=== PATIENT | male | born 1950 | race Caucasian/White ===

== ENCOUNTER 2016-12-11 14:33 | Emergency (ER) | payer BC ==
[~2016-12-11] VITALS: Ht 175.3 cm; Wt 128.4 kg
[~2016-12-11 14:33] MED LIST: ANDR4DIS TD; ASPI81TA63 PO; ATOR1TAB19 PO; BENI20TA3 PO; CENTTAB47 PO; FLUT11IN INH; OSTETAB3 PO; SYNT50TA PO; VITA400C97 PO
[2016-12-11] MEDS ORDERED: LIDOCAINE 2% MDV 20 ML VIAL As Ordered ONE (14:39)
[2016-12-11] MEDS ORDERED: ceFAZolin 1GM INJ (J0690) As Ordered ONE (14:52)
[2016-12-11] MEDS ORDERED: TETANUS/DIPHTHERIA TOX ADSORB ADULT 0.5ML SYR/VIAL (90714) As Ordered ONE (14:58)
[2016-12-11] MEDS ORDERED: ADACEL/BOOSTRIX VACCINE (DIPHTH/PERTUSS/ACELL/TETANUS)0.5ML SYR (90715) As Ordered ONE (15:02)
[2016-12-11 15:12] LABS: MEAN CORPUSCULAR HEMOGLOBIN 33.7 pg (27.0-33.0); MEAN CORPUSCULAR HGB CONC 35.8 g/dl (32.0-36.5); RED CELL DISTRIBUTION WIDTH 12.4 % (11.5-14.5); WHITE BLOOD COUNT 8.3 K/mm3 (4.0-10.0)
[2016-12-11 15:25] LABS: INR 1.02
[2016-12-11 15:30] LABS: ANION GAP 11 MEQ/L (8-16); BLOOD UREA NITROGEN 15 MG/DL (7-18); CARBON DIOXIDE LEVEL 26 MEQ/L (21-32); CHLORIDE LEVEL 105 MEQ/L (98-107); CREATININE FOR GFR 0.86 MG/DL (0.70-1.30); GLOMERULAR FILTRATION RATE > 60.0 (>49); GLUCOSE, FASTING 175 MG/DL (80-110); POTASSIUM SERUM 4.1 MEQ/L (3.5-5.1); SODIUM LEVEL 142 MEQ/L (136-145)
--- NOTE | 2016-12-11 15:36 | REP ---
Clinical: Trauma. Technique: AP, lateral, bilateral oblique views of the right hand. Findings: There is a comminuted fracture / partial amputation involving the distal aspect of the second digit predominately involving the distal phalanx and overlying soft tissue. Remainder examination appears relatively normal. Impression: Comminuted fracture / partial amputation involving the distal aspect of the second digit. Signed by Omari Nolasco MD 12/11/2016 03:28 P
[2016-12-11] MEDS ORDERED: LEVO25TA5 PO (15:40)
[2016-12-11] MEDS ORDERED: ATOR40TA PO (15:40)
--- NOTE | 2016-12-11 17:16 | EDDOCDS ---
Physician Documentation [facility] Name: Jonathan Dixon Age: 66 yrs Sex: Male : 1950 Arrival Date: 12/11/2016 Time: 14:33 Bed 5 Private MD: Disposition: 12/11/16 17:00 Discharged to Home/Self Care. 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 - Condition is Stable. - Discharge Instructions: Fingertip Injuries and Amputations, Fingernail or Toenail Loss. - Prescriptions for Keflex 500 mg Oral Capsule - take 1 capsule by ORAL route every 6 hours for 10 days; 40 capsule. Percocet 5- 325 mg Oral Tablet - take 1 tablet by ORAL route every 6 hours As needed MDD: 4 tabs; 30 tablet. - Medication Reconciliation, Local Pharmacy Hours form. - Follow up: Denis Camargo; When: Call to arrange an appointment; Reason: Recheck today's complaints, Continuance of care. - Problem is new. - Symptoms have improved. Historical: - Allergies: no known allergies; - Home Meds: 1. Lipitor 40 mg Oral tab 1 tab once daily 2. unknwn for thyroid - PMHx: High Cholesterol; Hypertension; Hypothyroidism; - PSHx: none; - Social history: Smoking status: Patient states former smoker of tobacco. No barriers to communication noted, The patient speaks fluent Macedonian, Speaks appropriately for age. - Family history: Not pertinent. - : The pt / caregiver states he / she is not on anticoagulants. Home medication list is obtained from the patient. - Exposure Risk Screening:: None identified. Vital Signs: 12/11 14:42 Weight 128.37 kg / 283.01 lbs (R); Height 5 ft. 9 in. (175.26 cm) (R); Pain 0/10; mlb1 14:42 BP 194 / 92; Pulse 99; Resp 16; Temp 96.6; Pulse Ox 97% on R/A; mlb1 17:08 BP 156 / 97; Pulse 104; Resp 20; Temp 97.5(O); Pulse Ox 96% on R/A; Pain 0/10; jml1 14:42 Body Mass Index 41.79 (128.37 kg, 175.26 cm) mlb1 MDM: 14:46 IV Saline Lock ordered. ke 14:46 Tetanus- Diptheria-Acellular Pertussis 0.5 ml IM once; Routine booster 10-64yrs, >64 ke with child contact [place] [employer] ordered. 14:46 ceFAZolin 1 grams IVPB once over 30 mins; dilute in 50mL of NS or D5W ordered. ke 14:47 Hand, Complete Ordered. EDMS 14:47 CBC Ordered. EDMS 14:47 BMP Ordered. EDMS 14:47 PT/INR Ordered. EDMS 15:10 BED REQUEST+ADM ordered. EDMS 17:05 [facility] Payment Agreement was scanned into [email or web address] and attached to record. jp5 17:05 Financial registration complete. jp5 Administered Medications: 14:40 Drug: Tetanus- Diptheria-Acellular Pertussis 0.5 ml [diphth,pertussis(acel),tetanus 2.5 aa3 Lf unit-8 mcg-5 Lf/0.5mL IM syringe (0.5 mL)] {Outreach Nurse: [employer]. Exp: 01/05/2019. Lot #: [id number]. } Route: IM; Site: left deltoid; 15:19 Drug: ceFAZolin 1 grams [cefazolin 1 gram solution for injection] Route: IVPB; Infused aa3 Over: 30 mins; Site: left forearm; Signatures: Dispatcher [employer] EDWY Willie Hernandez, CLINICAL NURSING COORDINATOR CLINICAL NURSING COORDINATOR Michel Zepeda RN RN mlb1 Zuleika BhatRN RN aa3 Chantal Tomlinson jp5 The chart was reviewed and I authenticate all verbal orders and agree with the evaluation and treatment provided.Attachments: 17:05 [facility] Payment Agreement jp5 MTDD
--- NOTE | 2016-12-11 17:16 | EDDOCDS ---
Nurse's Notes 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 Adult Sepsis Screening: The patient does not have new or worsening altered mentation. Patient's respiratory rate is less than 22. Systolic blood pressure is greater than 100. Patient has a qSOFA score of 0- Negative Sepsis Screen. Suicide/Homicide risk assessment- the patient denies having any suicidal and/or homicidal ideations and does not present with any other emotional, behavioral or mental health complaints. 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 Transition of care: patient was not received from another setting of care. 14:37 Acuity: LIVIER Level 3 mlb1 14:37 Method Of Arrival: Walkin/Carried/Asstd mlb1 Triage Assessment: 14:41 General: Appears in no apparent distress, Behavior is appropriate for age, cooperative. mlb1 Pain: Denies pain. HIV screening NA for this visit Offered previously. Historical: - Allergies: no known allergies; - Home Meds: 1. Lipitor 40 mg Oral tab 1 tab once daily 2. unknwn for thyroid - PMHx: High Cholesterol; Hypertension; Hypothyroidism; - PSHx: none; - Social history: Smoking status: Patient states former smoker of tobacco. No barriers to communication noted, The patient speaks fluent Estonian, Speaks appropriately for age. - Family history: Not pertinent. - : The pt / caregiver states he / she is not on anticoagulants. Home medication list is obtained from the patient. - Exposure Risk Screening:: None identified. Screenin:19 Screening information is obtained from the patient. Fall risk: No risks identified. aa3 Assistance ADL's: requires no assistance with activities of daily living. Abuse/DV Screen: The patient / caregiver reports he/she is: not in a situation that causes fear, pain or injury. Nutritional screening: No deficits noted. Advance Directives: Currently, there is no health care proxy. There is no active DNR order. There is no living will. home support is adequate. Assessment: 15:19 General: Appears in no apparent distress, comfortable, Behavior is appropriate for age, aa3 cooperative. Pain: Location: dorsal aspect of distal phalanx of right index finger, palmar aspect of distal phalanx of right index finger and right index fingernail Pain currently is 0 out of 10 on a pain scale. Neurological: Level of Consciousness is awake, alert. Respiratory: Airway is patent Respiratory effort is even, unlabored, Respiratory pattern is regular, symmetrical. Derm: Skin is healthy with good turgor. Musculoskeletal: Patient's tip of right pointer finger from first knuckle distal at 45 degree angle sheared off. 16:33 General: Appears in no apparent distress, comfortable, Behavior is appropriate for age, aa3 cooperative. General: Dr. Camargo in to see patient, currently stitching patient's finger. Patient denies needs at this time. Will continue to monitor.. Pain: Denies pain. Neurological: Level of Consciousness is awake, alert, Oriented to person, place, time. Respiratory: Airway is patent Respiratory effort is even, unlabored, Respiratory pattern is regular, symmetrical. 17:02 General: Appears in no apparent distress, comfortable, Behavior is appropriate for age, aa3 cooperative. Neurological: Level of Consciousness is awake, alert, Oriented to person, place, time. Respiratory: Airway is patent Respiratory effort is even, unlabored, Respiratory pattern is regular, symmetrical. Musculoskeletal: Vital Signs: 14:42 Weight 128.37 kg (R); Height 5 ft. 9 in. (175.26 cm) (R); Pain 0/10; mlb1 14:42 BP 194 / 92; Pulse 99; Resp 16; Temp 96.6; Pulse Ox 97% on R/A; mlb1 17:08 BP 156 / 97; Pulse 104; Resp 20; Temp 97.5(O); Pulse Ox 96% on R/A; Pain 0/10; jml1 14:42 Body Mass Index 41.79 (128.37 kg, 175.26 cm) mlb1 Vitals: 17:15 Log In Time: December 11, 2016 at 14:42. aa3 ED Course: 14:35 Patient visited by Sol Taylor. mm15 14:35 Patient moved to Waiting mm15 14:36 [facility] FNP [facility]. ke 14:36 Patient visited by Willie Hernandez FNP. ke 14:36 Patient visited by Willie Hernandez FNP. ke 14:36 Patient moved to 5 mlb1 14:37 Patient visited by Michel Gaines RN. mlb1 14:38 Triage Initiated mlb1 14:48 Zuleika Bhat RN is Primary Nurse. aa3 14:50 Inserted peripheral IV: 20gauge IV in left forearm Patient tolerated the procedure aa3 well. Labs drawn. (by ED staff). Sent per order to lab. direct pressure applied by Danish Pierre CNA. 15:09 Patient visited by Willie Hernandez FNP. ke 15:19 The patient / caregiver is instructed regarding the plan of care and ED course. aa3 15:26 Patient visited by Zuleika Bhat RN. aa3 15:32 Patient visited by Zuleika Bhat RN. aa3 15:58 Patient visited by Willie Hernandez FNP. ke 16:03 Hand, Complete Returned. EDMS 16:33 Patient visited by Willie Hernandez FNP. ke 16:33 Patient visited by Zuleika Bhat RN. aa3 16:33 Assist provider with laceration repair using sutures, Performed by Denis Camargo Set up aa3 tray. Dressed with Kerlix, Patient tolerated well. [address] Camargo. 16:59 Denis Camargo is Referral Physician. ke 17:04 Patient visited by Zuleika Bhat RN. aa3 17:05 [facility] Payment Agreement was scanned into [employer] and attached to record. jp5 17:08 Patient visited by Kory Alcala. jml1 Administered Medications: 14:40 Drug: Tetanus- Diptheria-Acellular Pertussis 0.5 ml [diphth,pertussis(acel),tetanus 2.5 aa3 Lf unit-8 mcg-5 Lf/0.5mL IM syringe (0.5 mL)] {Gis Engineer: [employer]. Exp: 01/05/2019. Lot #: [id number]. } Route: IM; Site: left deltoid; 15:19 Drug: ceFAZolin 1 grams [cefazolin 1 gram solution for injection] Route: IVPB; Infused aa3 Over: 30 mins; Site: left forearm; Order Results: Lab Order: CBC; [facility] 12/11/16 15:04 Test: WHITE BLOOD COUNT; Value: 8.3; Range: 4.0-10.0; Units: K/mm3; Status: F Test: RED BLOOD COUNT; Value: 4.77; Range: 4.30-6.10; Units: M/mm3; Status: F Test: HEMOGLOBIN; Value: 16.1; Range: 14.0-18.0; Units: g/dl; Status: F Test: HEMATOCRIT; Value: 44.9; Range: 42.0-52.0; Units: %; Status: F Test: MEAN CORPUSCULAR VOLUME; Value: 94.0; Range: 80.0-96.0; Units: fl; Status: F Test: MEAN CORPUSCULAR HEMOGLOBIN; Value: 33.7; Range: 27.0-33.0; Abnormal: Above high normal; Units: pg; Status: F Test: MEAN CORPUSCULAR HGB CONC; Value: 35.8; Range: 32.0-36.5; Units: g/dl; Status: F Test: RED CELL DISTRIBUTION WIDTH; Value: 12.4; Range: 11.5-14.5; Units: %; Status: F Test: PLATELET COUNT, AUTOMATED; Value: 212; Range: 150-450; Units: k/mm3; Status: F Lab Order: BMP; [facility] 12/11/16 15:04 Test: GLUCOSE, FASTING; Value: 175; Range: 80-110; Abnormal: Above high normal; Units: MG/DL; Status: F Test: BLOOD UREA NITROGEN; Value: 15; Range: 7-18; Units: MG/DL; Status: F Test: CREATININE FOR GFR; Value: 0.86; Range: 0.70-1.30; Units: MG/DL; Status: F Test: GLOMERULAR FILTRATION RATE; Value: > 60.0; Range: >49; Status: F Test: SODIUM LEVEL; Value: 142; Range: 136-145; Units: MEQ/L; Status: F Test: POTASSIUM SERUM; Value: 4.1; Range: 3.5-5.1; Units: MEQ/L; Status: F Test: CHLORIDE LEVEL; Value: 105; Range: 98-107; Units: MEQ/L; Status: F Test: CARBON DIOXIDE LEVEL; Value: 26; Range: 21-32; Units: MEQ/L; Status: F Test: ANION GAP; Value: 11; Range: 8-16; Units: MEQ/L; Status: F Test: CALCIUM LEVEL; Value: 9.0; Range: 8.8-10.2; Units: MG/DL; Status: F Test Note: ; Units are mL/min/1.73 m2 Chronic Kidney Disease Staging per NKF: Stage I & II GFR >=60 Normal to Mildly Decreased Stage III GFR 30-59 Moderately Decreased Stage IV GFR 15-29 Severely Decreased Stage V GFR <15 Very Little GFR Left ESRD GFR <15 on BOILERMAKER ASSEMBLY AND ERECTION Lab Order: PT/INR; [facility] 12/11/16 15:04 Test: PROTHROMBIN TIME; Value: 13.5; Range: 12.3-14.5; Units: SECONDS; Status: F Test: INR; Value: 1.02; Status: F Test Note: ; THERAPUTIC HUMAN INR VALUES INDICATIONS NORMAL RANGES PROPHYLAXIS/TREATMENT OF: VENOUS THROMBOSIS 2.0-3.0 PULMONARY EMBOLISM 2.0-3.0 PREVENTION OF SYSTEMIC EMBOLISM FROM: TISSUE HEART VALVES 2.0-3.0 ACUTE MYOCARDIAL INFARCTION 2.0-3.0 VALVULAR HEART DISEASE 2.0-3.0 ATRIAL FIBRILLATION 2.0-3.0 MECHANICAL VALVES(HIGH RISK) 2.5-3.5 RECURRENT MYOCARDIAL INFARCTION 2.5-3.5 Radiology Order: Hand, Complete Test: Hand, Complete REASON FOR EXAMINATION: Trauma; Clinical: Trauma.; ; Technique: AP, lateral, bilateral oblique views of the right hand.; ; Findings:; There is a comminuted fracture / partial amputation involving the distal aspect; of the second digit predominately involving the distal phalanx and overlying soft; tissue. Remainder examination appears relatively normal.; ; Impression:; Comminuted fracture / partial amputation involving the distal aspect of the; second digit.; ; ; Signed by; Omari Nolasco MD 12/11/2016 03:28 P; Outcome: 16:33 Discharge Assessment: Patient awake and alert. Oriented to person, place and time. aa3 Patient verbalized understanding of disposition instructions. Patient has no functional deficits. patient administered narcotics - no. The following High Risk Discharge criteria are identified: None. Discharged to home ambulatory. Condition: good. No special radiology studies were completed. Property :Personal belongings accompany Pt. 17:00 Discharge ordered by Provider. louise 17:15 Discharge instructions given to patient, Instructed on discharge instructions, follow aa3 up and referral plans. medication usage, wound care, Demonstrated understanding of instructions, medications, Pt was receptive of discharge instructions/ teaching. Prescriptions given X 2. 17:15 Patient left the ED. aa3 Signatures: Dispatcher [employer] EDPR Willie Hernandez, SLIME PLANT OPERATOR SLIME PLANT OPERATOR Michel Zepeda, RN RN mlb1 Kory Alcala jml1 Sol Taylor mm15 Zuleika Bhat,RN RN aa3 Chantal Tomlinson jp5 MTDD
--- NOTE | 2016-12-11 20:33 | ER ---
DATE OF CONSULTATION: CHIEF COMPLAINT: Right index finger partial amputation. HISTORY OF PRESENT ILLNESS: Prior to admission, the patient caught his right index finger in a wood engraver at his home, severing the tip of the finger, and he presented emergently to the emergency room for evaluation. He has no other complaints. PAST MEDICAL HISTORY: Significant for high cholesterol, hypertension, hypothyroidism. PAST SURGICAL HISTORY: None. HOME MEDICATIONS: - aspirin 81 mg - Lipitor - thyroid medication ALLERGIES: None known. SOCIAL HISTORY: Former tobacco smoker. PHYSICAL EXAMINATION: Awake, alert, and oriented times three. Well appearing male in no acute distress. Appropriately dressed and well nourished. Focused examination of the right hand, the index finger tip, distal to the distal interphalangeal joint there is an oblique clean laceration with, on my initial examination, some venous bleeding, which is controlled with pressure. There is loss of tissue, predominantly on the very tip and the nail plate and nail bed has approximately 50% loss. There is some maceration of the distal tip and there is some bone loss as well. He does demonstrate active flexion and extension at the distal interphalangeal joint. Examination of his right hand is otherwise negative. X-rays of the right hand show the soft tissue loss with about 50% loss of the terminal phalanx of the index finger. Otherwise, negative. ASSESSMENT: flat spring assembler injury to the right index finger, as above. PLAN: After obtaining his verbal consent, using sterile technique, the small sliver of a nail plate and nail bed, which was remaining, was removed and ablated. The wound was copiously irrigated and I did use the battery powered cautery device for local hemostasis with good effect. The healthy remaining flap tissue of the stump was brought over and covered the defect. I was able to cover all the bone with healthy-appearing tissue. I did have to remove about 3 or 4 mm of the terminal phalanx with the rongeur to assist with the closure, but good closure was appreciated and at this time the tip is pink and well perfused. He is oozing minimally venous blood at this time. We will monitor him prior to discharge to ensure that good hemostasis is achieved, which I do anticipate will be. The plan at this point, he is placed in sterile dressings. He will followup with the orthopedic group for examination this week. I have advised him that there is a chance he might need some form of revision operation or a flap possibly to cover a small remnant defect or possibly to revise what has been done. I did offer him referral this evening to a hand specialist urgently, but he did decline that and he is satisfied at this time with the treatment.
--- NOTE | 2016-12-13 18:16 | EDDOCDS ---
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 Adult Sepsis Screening: The patient does not have new or worsening altered mentation. Patient's respiratory rate is less than 22. Systolic blood pressure is greater than 100. Patient has a qSOFA score of 0- Negative Sepsis Screen. Suicide/Homicide risk assessment- the patient denies having any suicidal and/or homicidal ideations and does not present with any other emotional, behavioral or mental health complaints. Status: Patient is not a director emergency services or dependent. Transition of care: patient was not received from another setting of care. 14:37 Acuity: LIVIER Level 3 mlb1 14:37 Method Of Arrival: Walkin/Carried/Asstd mlb1 Triage Assessment: 14:41 General: Appears in no apparent distress, Behavior is appropriate for age, cooperative. mlb1 Pain: Denies pain. HIV screening NA for this visit Offered previously. Historical: - Allergies: no known allergies; - Home Meds: 1. Lipitor 40 mg Oral tab 1 tab once daily 2. unknwn for thyroid - PMHx: High Cholesterol; Hypertension; Hypothyroidism; - PSHx: none; - Social history: Smoking status: Patient states former smoker of tobacco. No barriers to communication noted, The patient speaks fluent Chilean, Speaks appropriately for age. - Family history: Not pertinent. - : The pt / caregiver states he / she is not on anticoagulants. Home medication list is obtained from the patient. - Exposure Risk Screening:: None identified. Screenin:19 Screening information is obtained from the patient. Fall risk: No risks identified. aa3 Assistance ADL's: requires no assistance with activities of daily living. Abuse/DV Screen: The patient / caregiver reports he/she is: not in a situation that causes fear, pain or injury. Nutritional screening: No deficits noted. Advance Directives: Currently, there is no health care proxy. There is no active DNR order. There is no living will. home support is adequate. Assessment: 15:19 General: Appears in no apparent distress, comfortable, Behavior is appropriate for age, aa3 cooperative. Pain: Location: dorsal aspect of distal phalanx of right index finger, palmar aspect of distal phalanx of right index finger and right index fingernail Pain currently is 0 out of 10 on a pain scale. Neurological: Level of Consciousness is awake, alert. Respiratory: Airway is patent Respiratory effort is even, unlabored, Respiratory pattern is regular, symmetrical. Derm: Skin is healthy with good turgor. Musculoskeletal: Patient's tip of right pointer finger from first knuckle distal at 45 degree angle sheared off. 16:33 General: Appears in no apparent distress, comfortable, Behavior is appropriate for age, aa3 cooperative. General: Dr. Camargo in to see patient, currently stitching patient's finger. Patient denies needs at this time. Will continue to monitor.. Pain: Denies pain. Neurological: Level of Consciousness is awake, alert, Oriented to person, place, time. Respiratory: Airway is patent Respiratory effort is even, unlabored, Respiratory pattern is regular, symmetrical. 17:02 General: Appears in no apparent distress, comfortable, Behavior is appropriate for age, aa3 cooperative. Neurological: Level of Consciousness is awake, alert, Oriented to person, place, time. Respiratory: Airway is patent Respiratory effort is even, unlabored, Respiratory pattern is regular, symmetrical. Musculoskeletal: Vital Signs: 14:42 Weight 128.37 kg (R); Height 5 ft. 9 in. (175.26 cm) (R); Pain 0/10; mlb1 14:42 BP 194 / 92; Pulse 99; Resp 16; Temp 96.6; Pulse Ox 97% on R/A; mlb1 17:08 BP 156 / 97; Pulse 104; Resp 20; Temp 97.5(O); Pulse Ox 96% on R/A; Pain 0/10; jml1 14:42 Body Mass Index 41.79 (128.37 kg, 175.26 cm) mlb1 Vitals: 17:15 Log In Time: December 11, 2016 at 14:42. aa3 ED Course: 14:35 Patient visited by Sol Taylor. mm15 14:35 Patient moved to Waiting mm15 14:36 [facility]. ke 14:36 Patient visited by Willie Hernandez FNP. ke 14:36 Patient visited by Willie Hernandez FNP. ke 14:36 Patient moved to 5 mlb1 14:37 Patient visited by Michel Gaines RN. mlb1 14:38 Triage Initiated mlb1 14:48 Zuleika Bhat RN is Primary Nurse. aa3 14:50 Inserted peripheral IV: 20gauge IV in left forearm Patient tolerated the procedure aa3 well. Labs drawn. (by ED staff). Sent per order to lab. direct pressure applied by Danish Pierre CNA. 15:09 Patient visited by Willie Hernandez FNP. ke 15:19 The patient / caregiver is instructed regarding the plan of care and ED course. aa3 15:26 Patient visited by Zuleika Bhat RN. aa3 15:32 Patient visited by Zuleika Bhat RN. aa3 15:58 Patient visited by Willie Hernandez FNP. ke 16:03 Hand, Complete Returned. EDMS 16:33 Patient visited by Willie Hernandez FNP. ke 16:33 Patient visited by Zuleika Bhat RN. aa3 16:33 Assist provider with laceration repair using sutures, Performed by Denis Camargo Set up aa3 tray. Dressed with Kerlix, Patient tolerated well. [address] Camargo. 16:59 Denis Camargo is Referral Physician. ke 17:04 Patient visited by Zuleika Bhat RN. aa3 17:05 [facility] Payment Agreement was scanned into [employer] and attached to record. jp5 17:08 Patient visited by Kory Alcala. jml1 12/12 10:20 T-Sheet-- Draft Copy was scanned into [employer] and attached to record. gb Administered Medications: 12/11 14:40 Drug: Tetanus- Diptheria-Acellular Pertussis 0.5 ml [diphth,pertussis(acel),tetanus 2.5 aa3 Lf unit-8 mcg-5 Lf/0.5mL IM syringe (0.5 mL)] {Chancellor: [employer]. Exp: 01/05/2019. Lot #: [id number]. } Route: IM; Site: left deltoid; 15:19 Drug: ceFAZolin 1 grams [cefazolin 1 gram solution for injection] Route: IVPB; Infused aa3 Over: 30 mins; Site: left forearm; Order Results: Lab Order: CBC; SPEC'M 12/11/16 15:04 Test: WHITE BLOOD COUNT; Value: 8.3; Range: 4.0-10.0; Units: K/mm3; Status: F Test: RED BLOOD COUNT; Value: 4.77; Range: 4.30-6.10; Units: M/mm3; Status: F Test: HEMOGLOBIN; Value: 16.1; Range: 14.0-18.0; Units: g/dl; Status: F Test: HEMATOCRIT; Value: 44.9; Range: 42.0-52.0; Units: %; Status: F Test: MEAN CORPUSCULAR VOLUME; Value: 94.0; Range: 80.0-96.0; Units: fl; Status: F Test: MEAN CORPUSCULAR HEMOGLOBIN; Value: 33.7; Range: 27.0-33.0; Abnormal: Above high normal; Units: pg; Status: F Test: MEAN CORPUSCULAR HGB CONC; Value: 35.8; Range: 32.0-36.5; Units: g/dl; Status: F Test: RED CELL DISTRIBUTION WIDTH; Value: 12.4; Range: 11.5-14.5; Units: %; Status: F Test: PLATELET COUNT, AUTOMATED; Value: 212; Range: 150-450; Units: k/mm3; Status: F Lab Order: BMP; SPEC'M 12/11/16 15:04 Test: GLUCOSE, FASTING; Value: 175; Range: 80-110; Abnormal: Above high normal; Units: MG/DL; Status: F Test: BLOOD UREA NITROGEN; Value: 15; Range: 7-18; Units: MG/DL; Status: F Test: CREATININE FOR GFR; Value: 0.86; Range: 0.70-1.30; Units: MG/DL; Status: F Test: GLOMERULAR FILTRATION RATE; Value: > 60.0; Range: >49; Status: F Test: SODIUM LEVEL; Value: 142; Range: 136-145; Units: MEQ/L; Status: F Test: POTASSIUM SERUM; Value: 4.1; Range: 3.5-5.1; Units: MEQ/L; Status: F Test: CHLORIDE LEVEL; Value: 105; Range: 98-107; Units: MEQ/L; Status: F Test: CARBON DIOXIDE LEVEL; Value: 26; Range: 21-32; Units: MEQ/L; Status: F Test: ANION GAP; Value: 11; Range: 8-16; Units: MEQ/L; Status: F Test: CALCIUM LEVEL; Value: 9.0; Range: 8.8-10.2; Units: MG/DL; Status: F Test Note: ; Units are mL/min/1.73 m2 Chronic Kidney Disease Staging per NKF: Stage I & II GFR >=60 Normal to Mildly Decreased Stage III GFR 30-59 Moderately Decreased Stage IV GFR 15-29 Severely Decreased Stage V GFR <15 Very Little GFR Left ESRD GFR <15 on STUDIO GRIP Lab Order: PT/INR; SPEC'M 12/11/16 15:04 Test: PROTHROMBIN TIME; Value: 13.5; Range: 12.3-14.5; Units: SECONDS; Status: F Test: INR; Value: 1.02; Status: F Test Note: ; THERAPUTIC HUMAN INR VALUES INDICATIONS NORMAL RANGES PROPHYLAXIS/TREATMENT OF: VENOUS THROMBOSIS 2.0-3.0 PULMONARY EMBOLISM 2.0-3.0 PREVENTION OF SYSTEMIC EMBOLISM FROM: TISSUE HEART VALVES 2.0-3.0 ACUTE MYOCARDIAL INFARCTION 2.0-3.0 VALVULAR HEART DISEASE 2.0-3.0 ATRIAL FIBRILLATION 2.0-3.0 MECHANICAL VALVES(HIGH RISK) 2.5-3.5 RECURRENT MYOCARDIAL INFARCTION 2.5-3.5 Radiology Order: Hand, Complete Test: Hand, Complete REASON FOR EXAMINATION: Trauma; Clinical: Trauma.; ; Technique: AP, lateral, bilateral oblique views of the right hand.; ; Findings:; There is a comminuted fracture / partial amputation involving the distal aspect; of the second digit predominately involving the distal phalanx and overlying soft; tissue. Remainder examination appears relatively normal.; ; Impression:; Comminuted fracture / partial amputation involving the distal aspect of the; second digit.; ; ; Signed by; Omari Nolasco MD 12/11/2016 03:28 P; Outcome: 16:33 Discharge Assessment: Patient awake and alert. Oriented to person, place and time. aa3 Patient verbalized understanding of disposition instructions. Patient has no functional deficits. patient administered narcotics - no. The following High Risk Discharge criteria are identified: None. Discharged to home ambulatory. Condition: good. No special radiology studies were completed. Property :Personal belongings accompany Pt. 17:00 Discharge ordered by Provider. ke 17:15 Discharge instructions given to patient, Instructed on discharge instructions, follow aa3 up and referral plans. medication usage, wound care, Demonstrated understanding of instructions, medications, Pt was receptive of discharge instructions/ teaching. Prescriptions given X 2. 17:15 Patient left the ED. aa3 Signatures: Dispatcher [employer] EDMS Natalie Arias, Reg Reg gb Willie Hernandez, TELEPRINTER TELEPRINTER Michel Zepeda RN RN mlb1 Kory Alcalal1 Sol Taylor mm15 Zuleiak Bhat,RN RN aa3 Chantal Tomlinson jp5 Chart Complete RADHA
--- NOTE | 2016-12-13 18:16 | EDDOCDS ---
Physician Documentation [facility] Name: Jonathan Dixon Age: 66 yrs Sex: Male : 1950 Arrival Date: 12/11/2016 Time: 14:33 Bed 5 Private MD: Disposition: 12/11/16 17:00 Discharged to Home/Self Care. 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 - Condition is Stable. - Discharge Instructions: Fingertip Injuries and Amputations, Fingernail or Toenail Loss. - Prescriptions for Keflex 500 mg Oral Capsule - take 1 capsule by ORAL route every 6 hours for 10 days; 40 capsule. Percocet 5- 325 mg Oral Tablet - take 1 tablet by ORAL route every 6 hours As needed MDD: 4 tabs; 30 tablet. - Medication Reconciliation, Local Pharmacy Hours form. - Follow up: Denis Camargo; When: Call to arrange an appointment; Reason: Recheck today's complaints, Continuance of care. - Problem is new. - Symptoms have improved. Historical: - Allergies: no known allergies; - Home Meds: 1. Lipitor 40 mg Oral tab 1 tab once daily 2. unknwn for thyroid - PMHx: High Cholesterol; Hypertension; Hypothyroidism; - PSHx: none; - Social history: Smoking status: Patient states former smoker of tobacco. No barriers to communication noted, The patient speaks fluent Romansh, Speaks appropriately for age. - Family history: Not pertinent. - : The pt / caregiver states he / she is not on anticoagulants. Home medication list is obtained from the patient. - Exposure Risk Screening:: None identified. Vital Signs: 12/11 14:42 Weight 128.37 kg / 283.01 lbs (R); Height 5 ft. 9 in. (175.26 cm) (R); Pain 0/10; mlb1 14:42 BP 194 / 92; Pulse 99; Resp 16; Temp 96.6; Pulse Ox 97% on R/A; mlb1 17:08 BP 156 / 97; Pulse 104; Resp 20; Temp 97.5(O); Pulse Ox 96% on R/A; Pain 0/10; jml1 14:42 Body Mass Index 41.79 (128.37 kg, 175.26 cm) mlb1 MDM: 14:46 IV Saline Lock ordered. ke 14:46 Tetanus- Diptheria-Acellular Pertussis 0.5 ml IM once; Routine booster 10-64yrs, >64 ke with child contact [place] [employer] ordered. 14:46 ceFAZolin 1 grams IVPB once over 30 mins; dilute in 50mL of NS or D5W ordered. ke 14:47 Hand, Complete Ordered. EDMS 14:47 CBC Ordered. EDMS 14:47 BMP Ordered. EDMS 14:47 PT/INR Ordered. EDMS 15:10 BED REQUEST+ADM ordered. EDMS 17:05 [facility] Payment Agreement was scanned into [employer] and attached to record. 5 17: Financial registration complete. 5 12/12 10:20 T-Sheet-- Draft Copy was scanned into [employer] and attached to record. gb Administered Medications: 12/11 14:40 Drug: Tetanus- Diptheria-Acellular Pertussis 0.5 ml [diphth,pertussis(acel),tetanus 2.5 aa3 Lf unit-8 mcg-5 Lf/0.5mL IM syringe (0.5 mL)] {Associate Chemist: [employer]. Exp: 01/05/2019. Lot #: [id number]. } Route: IM; Site: left deltoid; 15:19 Drug: ceFAZolin 1 grams [cefazolin 1 gram solution for injection] Route: IVPB; Infused aa3 Over: 30 mins; Site: left forearm; Signatures: Dispatcher [employer] EDID Natalie Arias, Reg Reg Willie Gomez, LEAD INVESTIGATOR LEAD INVESTIGATOR Michel Zepeda RN RN mlb1 Zuleika Bhat RN RN aa3 Chantal Tomlinson jp5 The chart was reviewed and I authenticate all verbal orders and agree with the evaluation and treatment provided.Attachments: 17:05 [facility] Payment Agreement 5 12/12 10:20 T-Sheet-- Draft Copy gb Chart Complete MTDD
--- NOTE | 2016-12-13 18:16 | EDDOCDS ---
Physician Documentation [facility] Name: Jonathan Dixon Age: 66 yrs Sex: Male : 1950 Arrival Date: 12/11/2016 Time: 14:33 Bed 5 Private MD: Disposition: 12/11/16 17:00 Discharged to Home/Self Care. 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 - Condition is Stable. - Discharge Instructions: Fingertip Injuries and Amputations, Fingernail or Toenail Loss. - Prescriptions for Keflex 500 mg Oral Capsule - take 1 capsule by ORAL route every 6 hours for 10 days; 40 capsule. Percocet 5- 325 mg Oral Tablet - take 1 tablet by ORAL route every 6 hours As needed MDD: 4 tabs; 30 tablet. - Medication Reconciliation, Local Pharmacy Hours form. - Follow up: Denis Camargo; When: Call to arrange an appointment; Reason: Recheck today's complaints, Continuance of care. - Problem is new. - Symptoms have improved. Historical: - Allergies: no known allergies; - Home Meds: 1. Lipitor 40 mg Oral tab 1 tab once daily 2. unknwn for thyroid - PMHx: High Cholesterol; Hypertension; Hypothyroidism; - PSHx: none; - Social history: Smoking status: Patient states former smoker of tobacco. No barriers to communication noted, The patient speaks fluent Indonesian, Speaks appropriately for age. - Family history: Not pertinent. - : The pt / caregiver states he / she is not on anticoagulants. Home medication list is obtained from the patient. - Exposure Risk Screening:: None identified. Vital Signs: 12/11 14:42 Weight 128.37 kg / 283.01 lbs (R); Height 5 ft. 9 in. (175.26 cm) (R); Pain 0/10; mlb1 14:42 BP 194 / 92; Pulse 99; Resp 16; Temp 96.6; Pulse Ox 97% on R/A; mlb1 17:08 BP 156 / 97; Pulse 104; Resp 20; Temp 97.5(O); Pulse Ox 96% on R/A; Pain 0/10; jml1 14:42 Body Mass Index 41.79 (128.37 kg, 175.26 cm) mlb1 MDM: 14:46 IV Saline Lock ordered. ke 14:46 Tetanus- Diptheria-Acellular Pertussis 0.5 ml IM once; Routine booster 10-64yrs, >64 ke with child contact [employer] [employer] ordered. 14:46 ceFAZolin 1 grams IVPB once over 30 mins; dilute in 50mL of NS or D5W ordered. ke 14:47 Hand, Complete Ordered. EDMS 14:47 CBC Ordered. EDMS 14:47 BMP Ordered. EDMS 14:47 PT/INR Ordered. EDMS 15:10 BED REQUEST+ADM ordered. EDMS 17:05 [facility] Payment Agreement was scanned into [employer] and attached to record. 5 17: Financial registration complete. 5 12/12 10:20 T-Sheet-- Draft Copy was scanned into [employer] and attached to record. gb Administered Medications: 12/11 14:40 Drug: Tetanus- Diptheria-Acellular Pertussis 0.5 ml [diphth,pertussis(acel),tetanus 2.5 aa3 Lf unit-8 mcg-5 Lf/0.5mL IM syringe (0.5 mL)] {Protective Signal Operator: [employer]. Exp: 01/05/2019. Lot #: [id number]. } Route: IM; Site: left deltoid; 15:19 Drug: ceFAZolin 1 grams [cefazolin 1 gram solution for injection] Route: IVPB; Infused aa3 Over: 30 mins; Site: left forearm; Signatures: Dispatcher [employer] EDNY Natalie Arias, Reg Reg Willie Gomez, PAINT SPRAYER SANDBLASTER PAINT SPRAYER SANDBLASTER Michel Zepeda RN RN mlb1 Zuleika Bhat RN RN aa3 Chantal Tomlinson jp5 The chart was reviewed and I authenticate all verbal orders and agree with the evaluation and treatment provided.Attachments: 17:05 [facility] Payment Agreement 5 12/12 10:20 T-Sheet-- Draft Copy gb Chart Complete MTDD
== END 2016-12-11 17:15 | disposition home or self-care (01) ==
LOC: M ED 14:33
DX: S68.620A Partial traumatic transphalangeal amputation of right index finger, initial encounter (principal); W31.2XXA Contact with powered woodworking and forming machines, initial encounter; Y92.018 Other place in single-family (private) house as the place of occurrence of the external cause; Y93.89 Activity, other specified; Y99.8 Other external cause status; I10 Essential (primary) hypertension; E03.9 Hypothyroidism, unspecified; E78.00 Pure hypercholesterolemia, unspecified; Z79.899 Other long term (current) drug therapy; Z87.891 Personal history of nicotine dependence
CPT/HCPCS: 36415; 73130; 80048; 85027; 85610; 90471; 90715; 96374; 99284; J0690

== ENCOUNTER → 2019-01-21 | Outpatient (CLI) | payer OTHER ==
[~2019-01-21] MED LIST changes: +ASPI1TAB8 PO; -ASPI81TA63 PO; +ATOR40TA75 PO; +BENI20TA18 PO; -BENI20TA3 PO; +LEVO25TA5 PO
[2019-01-21 14:54] LABS: BLOOD UREA NITROGEN 19 MG/DL (7-18); CREATININE FOR GFR 1.17 MG/DL (0.70-1.30); GLOMERULAR FILTRATION RATE > 60.0 (>49)
== END ==
LOC: M LAB 13:53
PROVIDERS: ATTEND Physician Assistant Medical
DX: J39.2 Other diseases of pharynx (principal)

== ENCOUNTER → 2019-01-24 | Outpatient (CLI) | payer MEDICARE, OTHER ==
[~2019-01-24] MED LIST changes: +ISOVUE-370 76% 100ML VIAL (Q9967) As Ordered ONE
--- NOTE | 2019-01-24 11:21 | REP ---
SOFT-TISSUE NECK CT STUDY WITH IV CONTRAST: HISTORY: Ulcer in the nasopharynx. CT CONTRAST DOSE: 75 mL of intravenous Isovue 370. Comparison maxillofacial CT study February 07, 2013. CT FINDINGS: Incidental note is made of completely opacified ethmoid air cells and sphenoid air cells bilaterally. There is marked nearly complete opacification of the maxillary sinuses bilaterally. The changes are more pronounced than on the [address] study. Mastoid aeration is normal bilaterally. The frontal sinuses are not in the field of view. No bony destructive lesion is seen. There is a curvilinear calcification in the right thyroid lobe consistent with a calcification in a small cyst or nodule. Thyroid lobes are otherwise unremarkable. Submandibular glands are normal and symmetric. Parotid glands are symmetric and unremarkable. There is some accessory salivary gland tissue anterior to the parotids. This is unchanged. The nasopharynx is unremarkable by CT imaging. Hypopharynx supraglottic and subglottic airway are unremarkable. There is some hypertrophy of the lingual tonsillar soft tissue on the right. Epiglottis is unremarkable. There is a tonsillar crypt calcification on the left. Peritonsillar soft tissues are unremarkable. No vascular abnormality is seen. Minimal calcification is seen at the carotid bifurcation on the left. No adenopathy is observed. In the posterior aspect of the nasal cavity medial to the inferior turbinate there is evidence of a nasal polyp. IMPRESSION: Polysinusitis with nearly complete opacification of the maxillary, ethmoid, and sphenoid sinuses bilaterally. Probable right nasal polyp. No nasopharyngeal mass is seen. No evidence of adenopathy noted. Electronically Signed by Slick Wang MD 01/24/2019 06:33 P
== END ==
LOC: M RAD 08:51
PROVIDERS: ATTEND Physician Assistant Medical
DX: J39.2 Other diseases of pharynx (principal)
CPT/HCPCS: 70491; Q9967

== ENCOUNTER → 2019-02-26 | Outpatient (CLI) | payer OTHER ==
[~2019-02-26] MED LIST changes: -ISOVUE-370 76% 100ML VIAL (Q9967) As Ordered ONE
--- NOTE | 2019-02-26 15:54 | REP ---
MAXILLOFACIAL CT WITHOUT CONTRAST: HISTORY: Chronic maxillary sinusitis. COMPARISON: 02/07/2014 Mucosal thickening is present in the sinuses. There is complete opacification of the sphenoid and left ethmoid sinuses. There is almost complete opacification of the maxillary, frontal and right ethmoid sinuses. Mucosal thickening involves the ostiomeatal units. The uncinate processes are incompletely seen. This is likely due to demineralization secondary to chronic sinusitis. The middle and inferior nasal turbinates are partially paradoxical. There is minimal deviation of the nasal septum to the left. The cribriform plate, medial negrete of the orbits and optic canals are intact. The carotid canals form a segment of the posterolateral consistent with nasal polyps. IMPRESSION: 1. Sinus mucosal thickening as described above. 2. There are soft tissue densities in the nasal passage consistent with polyps. Electronically Signed by Evaristo Griffin MD 02/26/2019 03:57 P
== END ==
LOC: M RAD 13:17
PROVIDERS: ATTEND Otolaryngology
DX: J32.0 Chronic maxillary sinusitis (principal)

== ENCOUNTER 2019-07-21 12:36 | Inpatient (IN) | payer OTHER ==
[~2019-07-21] VITALS: Ht 175.3 cm; Wt 127.1 kg
[2019-07-21] MEDS ORDERED: ONDANSETRON 4MG/2ML VIAL (J2405) IV ONE (13:30)
[2019-07-21] MEDS ORDERED: NS 1,000 ML IV ONE (13:30)
[2019-07-21 14:36] LABS: HEMATOCRIT 42.9 % (42.0-52.0); HEMOGLOBIN 15.5 g/dl (13.5-17.5); MEAN CORPUSCULAR HEMOGLOBIN 34.1 pg (27.0-33.0); MEAN CORPUSCULAR HGB CONC 36.1 g/dl (32.0-36.5); MEAN CORPUSCULAR VOLUME 94.5 fl (80.0-96.0); PLATELET COUNT, AUTOMATED 177 10^3/uL (150-450); RED BLOOD COUNT 4.54 10^6/uL (4.30-6.10); WHITE BLOOD COUNT 14.5 10^3/uL (4.0-10.0)
[2019-07-21 14:51] LABS: BLOOD UREA NITROGEN 14 MG/DL (7-18); CARBON DIOXIDE LEVEL 24 MEQ/L (21-32); CHLORIDE LEVEL 106 MEQ/L (98-107); CREATININE FOR GFR 1.07 MG/DL (0.70-1.30); GLOMERULAR FILTRATION RATE > 60.0 (>49); GLUCOSE, FASTING 105 MG/DL (70-100); POTASSIUM SERUM 4.6 MEQ/L (3.5-5.1); SODIUM LEVEL 140 MEQ/L (136-145)
[2019-07-21] MEDS ORDERED: ISOVUE-370 76% 100ML VIAL (Q9967) As Ordered ONE (15:00)
--- NOTE | 2019-07-21 15:55 | REP ---
CT of the abdomen and pelvis with IV contrast, without bowel contrast: Comparison is 10/22/2008. There is a 9 mm calculus in the distal left ureter approximate 1 cm from the bladder. There is left hydroureter and hydronephrosis. There is left perinephric stranding. There are no right renal or ureteral calculi. No right hydronephrosis. There is a 5.7 cm Bosniak type 1 cyst arising from the left renal lower pole. This measured 6.3 cm previously. There is a 2 cm solid left adrenal mass. This is unchanged from the prior study. The right adrenal is unremarkable. The visualized lung bass are unremarkable. The hepatic parenchyma is diffusely hypodense compatible with hepato steatosis. This is unchanged. There are no hepatic masses. There is a ring-shaped gallbladder calculus in the gallbladder neck. This is unchanged. The pancreas and spleen are unremarkable. Right adrenal is unremarkable. Abdominal aorta is unremarkable except for calcified atheroma. The bowel and mesentery are well. Pelvis: The the patient has had appendectomy. The terminal ileum is unremarkable. There is no ascites or adenopathy. The prostate is enlarged. The bladder is unremarkable. Impression: Left obstructive uropathy from a 9 mm calculus in the distal left ureter. Left hydroureter/hydronephrosis/perinephric stranding. 2 cm left adrenal solid mass, unchanged in size. 5.7 cm right renal Bosniak type 1 cyst. The prostate is enlarged and has increased in size. Electronically Signed by Dilan Do MD 07/21/2019 03:47 P
[2019-07-21] MEDS ORDERED: cefTRIAXone SOD 1 GM in D5W MINI-BAG PLUS 50 ML IV ONE (16:15)
[2019-07-21] MEDS ORDERED: MONT10TA2 PO (16:39)
[2019-07-21] MEDS ORDERED: VITA-245 PO (16:39)
[2019-07-21] MEDS ORDERED: VITMTA PO (16:39)
[2019-07-21] MEDS ORDERED: MORPHINE 4 MG/ML 1ML VIAL/SYRINGE (J2270) IV PRN (16:45)
[2019-07-21] MEDS ORDERED: ONDANSETRON 4MG/2ML VIAL (J2405) IV PRN (16:45)
[2019-07-21] MEDS ORDERED: ACETAMINOPHEN TAB 650MG DOSE (2X325MG) PO PRN (17:00)
--- NOTE | 2019-07-21 17:04 | HPEPDOC ---
General Date of Admission 06/21/19 Date of Service: Jul 21, 2019 Primary Care Physician: Jr Guadarrama Collins Attending Physician: LAUREN JOHNSON DO Chief Complaint The patient is a 68-year-old male admitted with a reason for visit of Urinary Issue. Source: Patient Timing/Duration: 4-6 hours Severity: Moderate Associated Symptoms: Loss of appetite History of Present Illness Patient is 68 years old male with past history of hypertension, hyperlipidemia presented hospital with left flank and suprapubic pain. Patient stated that in the morning had difficulties in urination associated with left flank and lower abdominal pain. The pain was associated with subjective fever and chills. In emergency room patient was found to have on abdominal CT scan left obstructive uropathy from a 9 mm calculus in the distal left ureter. White blood count was elevated to 14.5. Urinalysis shows gross hematuria. Patient denied nausea vomiting, palpitations, shortness of breath, diarrhea Home Medications Scheduled Aspirin (Aspirin EC) 81 Mg Tab, 81 MG PO DAILY, (Reported) Atorvastatin Calcium (Atorvastatin Calcium) 40 Mg Tab, 40 MG PO DAILY, (Reported) Glucosamine/Chondr Collins A Sod (Osteo Bi-Flex Caplet) 1 Tab Tab, 2 TAB PO DAILY, (Reported) Levothyroxine Sodium (Levothyroxine Sodium) 25 Mcg Tab, 25 MCG PO QHS, (Reported) Montelukast Sodium (Montelukast Sodium) 10 Mg Tablet, 10 MG PO QHS, (Reported) Multivitamins (Thera M Plus Tablet) 1 Each Tablet, 1 TAB PO DAILY, (Reported) Olmesartan/Hydrochlorothiazide (Benicar Hct 20-12.5 mg Tablet) 1 Tab Tab, 1 TAB PO DAILY, (Reported) Vitamin E (Vitamin E) 400 Unit Capsule, 400 UNIT PO DAILY, (Reported) Allergies Coded Allergies: Acarides (Mites) (Verified Allergy, Unknown, 07/21/19) No Known Drug Allergies (Verified Allergy, Unknown, 07/21/19) Past Medical History Medical History Hypertension, hyperlipidemia, hypothyroidism Family History Father from lung cancer, mother had hypertension and hyperlipidemia Social History * Smoker: former Smoker Alcohol: occationally Drugs: denies A-FIB/CHADSVASC A-FIB History Current/History of A-Fib/PAF?: No Current PO Anticoag Therapy: No Review of Systems Constitutional: Reports: Chills, Fever Eyes: Denies: Pain, Vision change ENT: Denies: Head Aches, Ear Pain Skin: Denies: Rash, Lesions Pulmonary: Denies: Dyspnea, Cough Cardiovascular: Denies: Chest Pain, Palpitations Gastrointestinal: Reports: Nausea; Denies: Vomiting Genitourinary: Reports: Dysuria, Frequency, Hematuria Hematologic: Denies: Bruising, Bleeding Excessively Endocrine: Denies: Polydipsia, Polyphagia Musculoskeletal: Denies: Neck Pain, Back Pain Neurological: Denies: Weakness, Numbness Psych: Reports: Mood Normal; Denies: Anxiety, Depression Physical Examination General Exam: Positive: Alert, Cooperative Eye Exam: Positive: PERRLA, Conjunctiva & lids normal, EOMI ENT Exam: Positive: Atraumatic Neck Exam: Positive: Supple; Negative: JVD Chest Exam: Positive: Clear to auscultation, Normal air movement Heart Exam: Positive: Rate Normal Telemetry: Positive: No significant arrhythmia Abdomen Exam: Positive: BS Hypoactive, Tenderness (left lower quadrant mild tenderness) Extremity Exam: Negative: Clubbing, Cyanosis Skin Exam: Positive: Nl turgor and temperature Neuro Exam: Positive: Normal Gait, Strength at 5/5 X4 ext Psych Exam: Positive: Mental status NL Vital Signs Vital Signs Date Time Temp Pulse Resp B/P (MAP) Pulse Ox O2 Delivery O2 Flow Rate FiO2 07/21/19 14:55 98.1 72 18 159/74 (102) 98 Room Air Laboratory Data Labs 24H Laboratory Tests 2 07/21/19 13:41: Urine Color YELLOW, Urine Appearance CLEAR, Urine pH 5.0, Urine Specific [place] 1.012, Urine Protein NEGATIVE, Urine Glucose (UA) NEGATIVE, Urine Ketones NEGATIVE, Urine Blood 3+H, Urine Nitrite NEGATIVE, Urine Bilirubin NEGATIVE, Urine Urobilinogen 0.2, Urine Leukocyte Esterase NEGATIVE, Urine WBC (Auto) 2, Urine RBC (Auto) 15H, Urine Hyaline Casts (Auto) 0, Urine Bacteria (Auto) NEGATIVE, Urine Squamous Epithelial Cells 0, Urine Mucus (Auto) SMALL, Urine Sperm (Auto) 07/21/19 14:23: Nucleated Red Blood Cells % (auto) 0.0, Anion Gap 10, Glomerular Filtration Rate > 60.0, Blood Urea Nitrogen 14, Creatinine 1.07, Sodium Level 140, Potassium Level 4.6, Chloride Level 106, Carbon Dioxide Level 24, Calcium Level 9.0 CBC/BMP Laboratory Tests 07/21/19 14:23 Red Blood Count 4.54, Mean Corpuscular Volume 94.5, Mean Corpuscular Hemoglobin 34.1 H, Mean Corpuscular Hemoglobin Concent 36.1, Red Cell Distribution Width 12.3, Calcium Level 9.0 Assessment/Plan Patient is 68 years old male with past history of hypertension, hyperlipidemia [facility] with [facility] renal colic, he was found to have 9 mm stone in the left distal ureter. Problems (1) Obstructive uropathy Status: Acute Problem Text: IV fluid Urology consult for left stent placement Ceftriaxone IV for now, urine analysis is negative for pyuria. However, patient has increased leukocytes count of 14.5 Will discuss with urologist continuation of antibiotic therapy (2) Hydronephrosis of left kidney Status: Acute Problem Text: Secondary to kidney stone See above Plan / VTE VTE Prophylaxis Ordered?: Yes LAUREN JOHNSON DO Jul 21, 2019 17:04
[2019-07-21 17:30] VITALS: BP 142/81
--- NOTE | 2019-07-21 18:18 | SMCUROLCON ---
Urology Consultation General Date of Consultation 07/21/19 Reason For Consultation This patient is seen for Hydronephrosis Of Left Kidney Obstructive Uropathy. History of Present Illness The patient is a [68]-year-old [man] with a past medical history for [left distal ureteral stone]. He awaoke with abdominal pain this morning and ultimately came to ER. CT revealed a 9 mm distal left ureteral stone with moderate hydronephrosis. He denies any prior episodes of stones. Past Medical History Medical History Hypertension Social History * Smoker: non-smoker Alcohol: occationally Drugs: denies Medications Current Medications Current Medications Medications (Trade) Dose Ordered Sig/Kamala Route PRN Reason Start Time Stop Time Status Last Admin Dose Admin Acetaminophen (Tylenol Tab) 650 mg Q4H PRN PO PAIN OR FEVER 07/21/19 17:00 Aspirin (Ecotrin) 81 mg DAILY PO 07/22/19 09:00 Atorvastatin Calcium (Lipitor) 40 mg DAILY PO 07/22/19 09:00 Ceftriaxone Sodium 1 gm/ Dextrose 50 ml @ 100 mls/hr Q12H IV 07/22/19 06:00 Heparin Sodium (Porcine) (Heparin) 5,000 units Q12H SC 07/21/19 21:00 Home Med (Med Rec Complete!) ASDIRECTED XX 07/21/19 16:45 07/21/19 16:44 DC Hydrochlorothiazide (Hydrodiuril) 12.5 mg DAILY PO 07/22/19 09:00 Levothyroxine Sodium (Synthroid) 25 mcg QHS PO 07/21/19 21:00 Montelukast Sodium (Singulair) 10 mg QHS PO 07/21/19 21:00 Morphine Sulfate (Morphine Sulfate Inj) 2 mg Q2H PRN IV MILD/MODERATE PAIN (PS 1-7) 07/21/19 16:45 Olmesartan (Benicar) 20 mg DAILY PO 07/22/19 09:00 Ondansetron HCl (ZOFRAN INJection) 4 mg Q6H PRN IV NAUSEA 07/21/19 16:45 Sodium Chloride 1,000 ml @ 100 mls/hr Q10H IV 07/21/19 17:00 Tamsulosin HCl (Flomax) 0.4 mg DAILY PO 07/21/19 09:00 Allergies Allergies: Coded Allergies: Acarides (Mites) (Verified Allergy, Unknown, 07/21/19) No Known Drug Allergies (Verified Allergy, Unknown, 07/21/19) Physical Examination General Exam: Cooperative, Other (He is moderately overweight) Abdomen Exam: Normal Bowel Sounds, Other (There is mild left lower quadrant tendernss) Male Exam: Normal Genital Exam Male Exam His prostate exam is deferred. Vital Signs/I&O Vital Signs Date Time Temp Pulse Resp B/P (MAP) Pulse Ox O2 Delivery O2 Flow Rate FiO2 07/21/19 14:55 98.1 72 18 159/74 (102) 98 Room Air Laboratory Data 24H Labs Laboratory Tests 2 07/21/19 13:41: Urine Color YELLOW, Urine Appearance CLEAR, Urine pH 5.0, Urine Specific [place] 1.012, Urine Protein NEGATIVE, Urine Glucose (UA) NEGATIVE, Urine Ketones NEGATIVE, Urine Blood 3+H, Urine Nitrite NEGATIVE, Urine Bilirubin NEGATIVE, Urine Urobilinogen 0.2, Urine Leukocyte Esterase NEGATIVE, Urine WBC (Auto) 2, Urine RBC (Auto) 15H, Urine Hyaline Casts (Auto) 0, Urine Bacteria (Auto) NEGATIVE, Urine Squamous Epithelial Cells 0, Urine Mucus (Auto) SMALL, Urine Sperm (Auto) 07/21/19 14:23: Nucleated Red Blood Cells % (auto) 0.0, Anion Gap 10, Glomerular Filtration Rate > 60.0, Blood Urea Nitrogen 14, Creatinine 1.07, Sodium Level 140, Potassium Level 4.6, Chloride Level 106, Carbon Dioxide Level 24, Calcium Level 9.0 CBC/BMP Laboratory Tests 07/21/19 14:23 Red Blood Count 4.54, Mean Corpuscular Volume 94.5, Mean Corpuscular Hemoglobin 34.1 H, Mean Corpuscular Hemoglobin Concent 36.1, Red Cell Distribution Width 12.3, Calcium Level 9.0 Assessment Left hydronephrosis due to left distal ureteral stone Plan I have discussed with him trial of passage (less than 10% liklihood) and ureteroscopy with laser lithotripsy and stent placement. Risks and benefits of both have been discussed with he and his in detail. He understands and wishes to proceed with the latter. I will make arrangements. Time Spent on Consult: Time Spent / Consult (Minutes): 30 CRISTY BENAVIDES MD Jul 21, 2019 18:18
[2019-07-21] MEDS: NS 1,000 ML IV SCH (18:21)
[2019-07-21] MEDS: TAMSULOSIN 0.4 MG CAP PO SCH (18:21)
[2019-07-21] MEDS ORDERED: HEPARIN SOD (PORCINE) 5000 UNITS/ML VIAL SC SCH (21:00)
[2019-07-21] MEDS ORDERED: LEVOTHYROXINE 25MCG TABLET (0.025MG) PO SCH (21:00)
[2019-07-21] MEDS ORDERED: MONTELUKAST 10 MG TAB PO SCH (21:00)
[2019-07-21 22:00] VITALS: BP 142/80
[2019-07-22] MEDS: NS 1,000 ML IV SCH ×2 (04:27→14:53)
[2019-07-22 06:00] VITALS: BP 123/69
[2019-07-22] MEDS: cefTRIAXone SOD 1 GM in D5W MINI-BAG PLUS 50 ML IV SCH ×2 (06:09→18:06)
[2019-07-22 06:18] LABS: HEMATOCRIT 38.4 % (42.0-52.0); HEMOGLOBIN 13.7 g/dl (13.5-17.5); MEAN CORPUSCULAR HEMOGLOBIN 34.3 pg (27.0-33.0); MEAN CORPUSCULAR HGB CONC 35.7 g/dl (32.0-36.5); PLATELET COUNT, AUTOMATED 169 10^3/uL (150-450); WHITE BLOOD COUNT 8.8 10^3/uL (4.0-10.0)
[2019-07-22 06:38] LABS: BLOOD UREA NITROGEN 12 MG/DL (7-18); CALCIUM LEVEL 8.7 MG/DL (8.8-10.2); CARBON DIOXIDE LEVEL 28 MEQ/L (21-32); CHLORIDE LEVEL 107 MEQ/L (98-107); CREATININE FOR GFR 0.95 MG/DL (0.70-1.30); GLOMERULAR FILTRATION RATE > 60.0 (>49); GLUCOSE, FASTING 107 MG/DL (70-100); POTASSIUM SERUM 3.6 MEQ/L (3.5-5.1); SODIUM LEVEL 141 MEQ/L (136-145)
[2019-07-22] MEDS ORDERED: ASPIRIN 81 MG ENTERIC TAB PO SCH (09:00)
[2019-07-22] MEDS ORDERED: ATORVASTATIN 20 MG TAB PO SCH (09:00)
[2019-07-22] MEDS ORDERED: hydroCHLOROthiazide 12.5 MG CAPSULE PO SCH (09:00)
[2019-07-22] MEDS ORDERED: POTASSIUM CHLORIDE 10 MEQ SR TABLET PO SCH (09:00)
[2019-07-22] MEDS ORDERED: OLMESARTAN MEDOXOMIL 20 MG TAB (BENICAR) PO SCH (09:00)
[2019-07-22] MEDS ORDERED: FLUBLOK(EGG FREE)(QUAD)INFLUENZA VACC 0.5ML SYRINGE (90682)18YRS&OLDER IM ONE (09:00)
[2019-07-22] MEDS ORDERED: PROPOFOL 200 MG/20 ML VIAL As Ordered ONE (10:20)
[2019-07-22] MEDS ORDERED: MIDAZOLAM INJ 2 MG/2 ML VIAL (J2250) As Ordered ONE (10:20)
[2019-07-22] MEDS ORDERED: LIDOCAINE 2% INJ 100 MG/5 ML SDV (FOR ANES.) As Ordered ONE (10:20)
[2019-07-22] MEDS ORDERED: dexameTHASONE 4 MG/ML 1ML VIAL (J1100) As Ordered ONE (10:20)
[2019-07-22] MEDS ORDERED: ONDANSETRON 4MG/2ML VIAL (J2405) As Ordered ONE (10:20)
[2019-07-22] MEDS ORDERED: fentaNYL 100 MCG/2 ML INJECTION (J3010) As Ordered ONE ×2 (10:21→12:19)
[2019-07-22] MEDS ORDERED: CONRAY-60 60% 50ML VIAL (Q9961) As Ordered ONE (10:22)
[2019-07-22] MEDS ORDERED: ROCURONIUM BROMIDE 50 MG/5 ML VIAL As Ordered ONE (11:56)
[2019-07-22] MEDS ORDERED: SUGAMMADEX SODIUM 500 MG/5 ML VIAL (BRIDION) As Ordered ONE (12:16)
[2019-07-22] MEDS ORDERED: METOCLOPRAMIDE INJ 10MG/2ML VIAL (J2765) IV PRN (13:45)
[2019-07-22] MEDS ORDERED: ONDANSETRON 4MG/2ML VIAL (J2405) IV PRN (13:45)
[2019-07-22] MEDS ORDERED: MEPERIDINE INJ 25 MG/ML VIAL (J2175) IV PRN (13:45)
[2019-07-22] MEDS ORDERED: PERCOCET 5MG/325MG TAB PO PRN (13:45)
[2019-07-22] MEDS ORDERED: LR 1,000 ML IV SCH (13:45)
[2019-07-22] MEDS ORDERED: fentaNYL 100 MCG/2 ML INJECTION (J3010) IV PRN (13:45)
--- NOTE | 2019-07-22 13:52 | IPNPDOC ---
Text Note Date of Service The patient was seen on 07/22/19. NOTE Subjective: No any acute events overnight, patient denies fever, chills, nausea, vomiting, any flank pain, diarrhea or dysuria General Exam: Positive: Alert, Cooperative Eye Exam: Positive: PERRLA, Conjunctiva & lids normal, EOMI ENT Exam: Positive: Atraumatic Neck Exam: Positive: Supple; Negative: JVD Chest Exam: Positive: Clear to auscultation, Normal air movement Heart Exam: Positive: Rate Normal Telemetry: Positive: No significant arrhythmia Abdomen Exam: Positive: BS Hypoactive, nontender, nondistended Extremity Exam: Negative: Clubbing, Cyanosis Skin Exam: Positive: Nl turgor and temperature Neuro Exam: Positive: Normal Gait, Strength at 5/5 X4 ext Psych Exam: Positive: Mental status NL Assessment/Plan Patient is 68 years old male with past history of hypertension, hyperlipidemia presented hospital with left renal colic, he was found to have 9 mm stone in the left distal ureter. (1) Obstructive uropathy Continue IV fluid Urologist planned to place left ureter stent today Continue Ceftriaxone IV Will discuss with urologist continuation of antibiotic therapy (2) Hydronephrosis of left kidney Status: Acute Problem Text: Secondary to kidney stone See above VS,Fishbone, I+O VS, Fishbone, I+O Laboratory Tests 07/21/19 14:23 Red Blood Count 4.54, Mean Corpuscular Volume 94.5, Mean Corpuscular Hemoglobin 34.1 H, Mean Corpuscular Hemoglobin Concent 36.1, Red Cell Distribution Width 12.3, Calcium Level 9.0 07/22/19 05:34 Red Blood Count 4.00 L, Mean Corpuscular Volume 96.0, Mean Corpuscular Hemoglobin 34.3 H, Mean Corpuscular Hemoglobin Concent 35.7, Red Cell Distribution Width 12.3, Calcium Level 8.7 L Vital Signs Date Time Temp Pulse Resp B/P (MAP) Pulse Ox O2 Delivery O2 Flow Rate FiO2 07/22/19 06:00 98.1 76 15 123/69 (87) 93 07/21/19 14:55 Room Air I&O- Last 24 Hours up to 6 AM 07/22/19 06:00 Intake Total 1170 ml Output Total 1700 ml Balance -530 ml DROZHZHIN,LAUREN DO Jul 22, 2019 13:52
[2019-07-22 14:00] VITALS: BP 151/91
[2019-07-22 14:48] VITALS: BP 138/86
[2019-07-22] MEDS: TAMSULOSIN 0.4 MG CAP PO SCH (14:51)
[2019-07-22 14:52] VITALS: BP 129/63
[2019-07-22 16:00] VITALS: BP 130/65
--- NOTE | 2019-07-22 17:06 | IPNPDOC ---
Subjective Review oF Systems Chief Complaint The patient is a 68-year-old male admitted with a reason for visit of Hydronephrosis Of Left Kidney Obstructive Uropathy. Events since Last Encounter He was taken to the OR earlier and underwent left ureteroscopy with laser lithotripsy and stent placement. He has been having some hematuria but no significant pain. His urine is red but without clots at present (he passed some clots earlier). Objective Physical Examination Heart Exam: Positive: Rate Normal ABDOMEN EXAM: Normal bowel sounds (His bladder is not palpably distended) Vital Signs/I&O Vital Signs Date Time Temp Pulse Resp B/P (MAP) Pulse Ox O2 Delivery O2 Flow Rate FiO2 07/22/19 16:00 97.6 72 16 130/65 (86) 95 07/22/19 13:30 2 07/21/19 14:55 Room Air I&O- Last 24 Hours up to 6 AM 07/22/19 06:00 Intake Total 1170 ml Output Total 1700 ml Balance -530 ml Laboratory Data Labs 24H Laboratory Tests 2 07/21/19 18:03: Parathyroid Hormone (Intact) 29.5 07/22/19 05:34: Nucleated Red Blood Cells % (auto) 0.0, Anion Gap 6L, Glomerular Filtration Rate > 60.0, Blood Urea Nitrogen 12, Creatinine 0.95, Sodium Level 141, Potassium Level 3.6#, Chloride Level 107, Carbon Dioxide Level 28, Calcium Level 8.7L 07/22/19 13:03: CBC/BMP Laboratory Tests 07/22/19 05:34 Red Blood Count 4.00 L, Mean Corpuscular Volume 96.0, Mean Corpuscular Hemoglobin 34.3 H, Mean Corpuscular Hemoglobin Concent 35.7, Red Cell Distribution Width 12.3, Calcium Level 8.7 L Assessment/Plan Date Seen The patient was seen on 07/22/19. Plan/VTE VTE Prophylaxis Ordered?: No Plan He is stable for discharge home. He can follow up with Urology later this week for stent removal. He does not require any antibiotics but may new some analgesics IVF: Discontinue Diet: Continue Current Activity: Encourage Ambulation Anticipated Discharge: Home CRISTY BENAVIDES MD Jul 22, 2019 17:06
[2019-07-22] MEDS ORDERED: ACET1TAB55 PO (17:11)
--- NOTE | 2019-07-22 17:29 | DS.PDOC ---
Discharge Summary General Date of Admission Jul 21, 2019 at 16:42 Date of Discharge 07/22/19 Discharge Summary PROCEDURES PERFORMED DURING STAY: Left ureter stent placement. ADMITTING DIAGNOSES: Obstructive uropathy Hydronephrosis of left kidney DISCHARGE DIAGNOSES: Obstructive uropathy Hydronephrosis of left kidney COMPLICATIONS/CHIEF COMPLAINT: Hydronephrosis Of Left Kidney Obstructive Uropathy. HISTORY OF PRESENT ILLNESS: Patient is 68 years old male with past history of hypertension, hyperlipidemia presented hospital with left flank and suprapubic pain. Patient stated that in the morning had difficulties in urination associated with left flank and lower abdominal pain. The pain was associated with subjective fever and chills. In emergency room patient was found to have on abdominal CT scan left obstructive uropathy from a 9 mm calculus in the distal left ureter. White blood count was elevated to 14.5. Urinalysis shows gross hematuria. Patient denied nausea vomiting, palpitations, shortness of breath, diarrhea HOSPITAL COURSE: He was taken to the OR and underwent left ureteroscopy with laser lithotripsy and stent placement. DISCHARGE MEDICATIONS: Please see below. ALLERGIES: Please see below. PHYSICAL EXAMINATION ON DISCHARGE: VITAL SIGNS: Please see below. General Exam: Positive: Alert, Cooperative Eye Exam: Positive: PERRLA, Conjunctiva & lids normal, EOMI ENT Exam: Positive: Atraumatic Neck Exam: Positive: Supple; Negative: JVD Chest Exam: Positive: Clear to auscultation, Normal air movement Heart Exam: Positive: Rate Normal Telemetry: Positive: No significant arrhythmia Abdomen Exam: Positive: BS Hypoactive Extremity Exam: Negative: Clubbing, Cyanosis Skin Exam: Positive: Nl turgor and temperature Neuro Exam: Positive: Normal Gait, Strength at 5/5 X4 ext Psych Exam: Positive: Mental status NL LABORATORY DATA: Please see below. IMAGING: CT of the abdomen and pelvis with IV contrast, without bowel contrast: Comparison is 10/22/2008. There is a 9 mm calculus in the distal left ureter approximate 1 cm from the bladder. There is left hydroureter and hydronephrosis. There is left perinephric stranding. There are no right renal or ureteral calculi. No right hydronephrosis. There is a 5.7 cm Bosniak type 1 cyst arising from the left renal lower pole. This measured 6.3 cm previously. There is a 2 cm solid left adrenal mass. This is unchanged from the prior study. The right adrenal is unremarkable. The visualized lung bass are unremarkable. The hepatic parenchyma is diffusely hypodense compatible with hepato steatosis. This is unchanged. There are no hepatic masses. There is a ring-shaped gallbladder calculus in the gallbladder neck. This is unchanged. The pancreas and spleen are unremarkable. Right adrenal is unremarkable. Abdominal aorta is unremarkable except for calcified atheroma. The bowel and mesentery are well. Pelvis: The the patient has had appendectomy. The terminal ileum is unremarkable. T here is no ascites or adenopathy. The prostate is enlarged. The bladder is unremarkable. Impression: Left obstructive uropathy from a 9 mm calculus in the distal left ureter. Left hydroureter/hydronephrosis/perinephric stranding. 2 cm left adrenal solid mass, unchanged in size. 5.7 cm right renal Bosniak type 1 cyst. The prostate is enlarged and has increased in size. PROGNOSIS: Favorable ACTIVITY: As tolerated DIET: 2 g salt restriction diet DISCHARGE PLAN: Home, follow-up with urologist DISPOSITION: Home DISCHARGE INSTRUCTIONS: Drink plenty of fluid ITEMS TO FOLLOWUP ON ON OUTPATIENT: See urologist in 3-4 days DISCHARGE CONDITION: Stable TIME SPENT ON DISCHARGE: Greater than 15 minutes. Vital Signs/I&Os Vital Signs Date Time Temp Pulse Resp B/P (MAP) Pulse Ox O2 Delivery O2 Flow Rate FiO2 07/22/19 16:00 97.6 72 16 130/65 (86) 95 07/22/19 13:30 2 07/21/19 14:55 Room Air I&O- Last 24 Hours up to 6 AM 07/22/19 06:00 Intake Total 1170 ml Output Total 1700 ml Balance -530 ml Laboratory Data Labs 24H Laboratory Tests 2 07/21/19 18:03: Parathyroid Hormone (Intact) 29.5 07/22/19 05:34: Nucleated Red Blood Cells % (auto) 0.0, Anion Gap 6L, Glomerular Filtration Rate > 60.0, Blood Urea Nitrogen 12, Creatinine 0.95, Sodium Level 141, Potassium Level 3.6#, Chloride Level 107, Carbon Dioxide Level 28, Calcium Level 8.7L 07/22/19 13:03: CBC/BMP Laboratory Tests 07/22/19 05:34 Red Blood Count 4.00 L, Mean Corpuscular Volume 96.0, Mean Corpuscular Hemoglobin 34.3 H, Mean Corpuscular Hemoglobin Concent 35.7, Red Cell Distribution Width 12.3, Calcium Level 8.7 L Discharge Medications Scheduled Aspirin (Aspirin EC) 81 Mg Tab, 81 MG PO DAILY, (Reported) Atorvastatin Calcium (Atorvastatin Calcium) 40 Mg Tab, 40 MG PO DAILY, (Reported) Glucosamine/Chondr Collins A Sod (Osteo Bi-Flex Caplet) 1 Tab Tab, 2 TAB PO DAILY, (Reported) Levothyroxine Sodium (Levothyroxine Sodium) 25 Mcg Tab, 25 MCG PO QHS, (Reported) Montelukast Sodium (Montelukast Sodium) 10 Mg Tablet, 10 MG PO QHS, (Reported) Multivitamins (Thera M Plus Tablet) 1 Each Tablet, 1 TAB PO DAILY, (Reported) Olmesartan/Hydrochlorothiazide (Benicar Hct 20-12.5 mg Tablet) 1 Tab Tab, 1 TAB PO DAILY, (Reported) Vitamin E (Vitamin E) 400 Unit Capsule, 400 UNIT PO DAILY, (Reported) Scheduled PRN Acetaminophen (Acetaminophen) 325 Mg Tablet, 650 MG PO Q4H PRN for PAIN OR FEVER Allergies Coded Allergies: Acarides (Mites) (Verified Allergy, Unknown, 07/21/19) No Known Drug Allergies (Verified Allergy, Unknown, 07/21/19) LAUREN JOHNSON DO Jul 22, 2019 17:29
--- NOTE | 2019-07-24 10:53 | RO ---
DATE OF PROCEDURE: 07/22/2019 PREPROCEDURE DIAGNOSIS: Left distal ureteral stone. POSTPROCEDURE DIAGNOSIS: Left distal ureteral stone. PROCEDURE: 1. Cystoscopy. 2. Right retrograde pyelogram. 3. Left ureteroscopy with laser lithotripsy. 4. Placement of left ureteral stent. SURGEON: Conrado Rosario MD TECHNICAL SUPERVISOR: ANESTHESIA: General anesthesia. ESTIMATED BLOOD LOSS: Minimal. INDICATION: Mr. Jonathan Dixon is a 68-year-old gentleman who presented to the emergency room with abdominal pain, nauseas and vomiting. He was found to have a 9 mm left distal ureteral stone. He now presents for surgical management of this problem. DESCRIPTION OF PROCEDURE: The patient brought to the operating room, placed in supine position. After administration of general anesthesia, he was placed in the dorsal lithotomy position and prepped and draped in the usual sterile fashion. Cystourethroscopy was performed using a 22-Taiwanese cystoscope. The anterior and posterior urethra were noted to be normal. The prostate revealed mild bilateral lobar hyperplasia and moderate elevation of the median bar. Entrance into the bladder was moderately difficult. Upon entrance of the bladder, the ureteral orifices were in normal anatomic position. There was clear reflux seen coming from the right but minimal reflux seen coming from the left. There were no mucosal lesions identified and grade 1-2 trabeculations noted throughout. Using a 5-T[place]wanese open-ended catheter, a left retrograde pyelogram was performed. This revealed a stone approximately 1 cm in diameter about 4 cm proximal to the ureterovesical junction. Other moderate hydronephrosis noted behind the stone. Under fluoroscopic guidance, a wire was placed across the stone and up into the left renal pelvis. The ureteral orifice was then dilated with the UroMax balloon and rigid ureteroscopy was performed. The previously described stone was located in the previously described location. The Holmium laser was used to break the stone up into multiple fragments both large and small. The largest fragments were grasped with a basket and removed in their entirety. These were sent to pathology for microscopic analysis. The smaller fragments were allowed to drain into the bladder without difficulty. Repeat ureteroscopy up to the ureteropelvic junction revealed no other ureteral calculi. The ureteroscope was then carefully removed and a 7-T[place]wanese double pigtail stent placed over the wires such that one coiled into the renal pelvis and the subsequent coiled within the bladder. The string was allowed to exit the urethral meatus but was noted to retract up into the urethra prior to the end of the procedure. This cystoscope and the sheath were then removed. The urine was noted to be blood tinged due to mild injury to the median bulb with the ureteroscope. The bladder was drained in its entirety and patient was returned to supine position. Anesthesia was reversed and he was transferred to a bed and taken to the postanesthesia care unit in good condition. Of note, the needle and instrument count were correct at the conclusion of the case.
[2019-08-01 10:07] LABS: CA Oxalate Dihy 30 % (.); COMMENT Note: (.); Ca Ox Monohydrate 65 % (.)
== END 2019-07-22 19:17 | disposition home or self-care (01) | DRG 670 ==
LOC: M ED 12:36 → M ED INP 16:42 → M MSPAV 17:43
PROVIDERS: ADMIT Internal Medicine; ATTEND Internal Medicine
PROC: 0TC68ZZ Extirpation of Matter from Right Ureter, Via Natural or Artificial Opening Endoscopic (ICD-10-PCS; principal; 2019-07-22 11:30)
DX: N13.2 Hydronephrosis with renal and ureteral calculous obstruction (principal); I10 Essential (primary) hypertension; E78.5 Hyperlipidemia, unspecified; R31.0 Gross hematuria; Z79.82 Long term (current) use of aspirin; Z79.899 Other long term (current) drug therapy; Z88.8 Allergy status to other drugs, medicaments and biological substances; E03.9 Hypothyroidism, unspecified

== ENCOUNTER → 2021-03-12 | Outpatient (CLI) | payer OTHER ==
[~2021-03-12] MED LIST changes: +ACET1TAB55 PO; +MONT10TA10 PO; +TAMS1CAP17; +VITA-245 PO; +VITMTA PO
== END ==
LOC: M LABSMTC 12:30
PROVIDERS: ATTEND Anesthesiology
DX: Z20.828 Contact with and (suspected) exposure to other viral communicable diseases (principal); Z11.59 Encounter for screening for other viral diseases

== ENCOUNTER 2021-03-17 11:04 | Day surgery (SDC) | payer OTHER ==
[~2021-03-17] VITALS: Ht 175.3 cm; Wt 106.5 kg
[~2021-03-17 11:04] MED LIST changes: +NS 1,000 ML IV ONE
[2021-03-17] MEDS ORDERED: propofoL 200 MG/20 ML VIAL As Ordered ONE ×2 (13:29→13:44)
[2021-03-17] MEDS ORDERED: LIDOCAINE 2% 100MG/5ML SDV (FOR ANES.) As Ordered ONE (13:29)
--- NOTE | 2021-03-17 14:04 | ROOR ---
Patient Name: Jonathan Dixon Procedure Date: 03/17/2021 1:40 PM Date of : 1950 Age: 70 Room: [facility] Gender: Male Note Status: Finalized Procedure: Total Colonoscopy to Cecum Indications: High risk colon cancer surveillance: Personal history of colonic polyps, Last colonoscopy: 2015 Providers: Joseluis Doran MD Referring MD: HARLEY BRONSON JR, MD Requesting Provider: Medicines: Monitored Anesthesia Care Complications: No immediate complications. Procedure: Pre-Anesthesia Assessment: - The heart rate, respiratory rate, oxygen saturations, blood pressure, adequacy of pulmonary ventilation, and response to care were monitored throughout the procedure. The Colonoscope was introduced through the anus and advanced to the cecum, identified by appendiceal orifice and ileocecal valve. The colonoscopy was performed without difficulty. The patient tolerated the procedure well. The quality of the bowel preparation was good. Findings: The perianal and digital rectal examinations were normal. Non-bleeding internal hemorrhoids were found during retroflexion. The hemorrhoids were small and Grade I (internal hemorrhoids that do not prolapse). No other significant abnormalities were identified in a careful examination of the remainder of the colon. The exam was otherwise without abnormality on direct and retroflexion views. Impression: - Non-bleeding internal hemorrhoids. - The examination was otherwise normal on direct and retroflexion views. - No specimens collected. - The exam was otherwise normal to the cecum. Recommendation: - Patient has a contact number available for emergencies. The signs and symptoms of potential delayed complications were discussed with the patient. Return to normal activities tomorrow. Written discharge instructions were provided to the patient. - High fiber diet. - Discharge patient to home. - Continue present medications. - Repeat colonoscopy in 5 years for surveillance. - Return to referring physician. - The findings and recommendations were discussed with the patient's family. Procedure Code(s): --- Professional --- G0105, Colorectal cancer screening; colonoscopy on individual at high risk Diagnosis Code(s): --- Professional --- Z86.010, Personal history of colonic polyps K64.0, First degree hemorrhoids CPT copyright 2019 [employer]. All rights reserved. 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 Joseluis Doran MD Joseluis Doran MD 03/17/2021 2:03:34 PM Electronically signed by Joseluis Doran MD Number of Addenda: 0 Note Initiated On: 03/17/2021 1:40 PM Estimated Blood Loss: Estimated blood loss: none.
[2021-03-17 14:15] VITALS: BP 138/66
== END 2021-03-17 14:38 | disposition home or self-care (01) ==
LOC: M OPP 11:04
PROVIDERS: ATTEND Internal Medicine Gastroenterology
DX: Z12.11 Encounter for screening for malignant neoplasm of colon (principal); Z86.010 Personal history of colon polyps; K64.0 First degree hemorrhoids; Z79.82 Long term (current) use of aspirin; Z79.899 Other long term (current) drug therapy; Z91.041 Radiographic dye allergy status; Z87.891 Personal history of nicotine dependence

== ENCOUNTER 2023-07-26 01:06 | Emergency (ER) | payer BC, OTHER ==
[~2023-07-26] VITALS: Ht 175.3 cm; Wt 106.8 kg
[~2023-07-26 01:06] MED LIST changes: -BENI20TA18 PO; -MONT10TA10 PO; +MONT10TA97 PO; -NS 1,000 ML IV ONE; +OLME-1 PO
[2023-07-26] MEDS ORDERED: NORCO 5/325MG TABLET (HOME DOSE PACK) PO ONE (04:25)
[2023-07-26] MEDS ORDERED: HYDR-3713 PO (04:29)
[2023-07-26 05:05] VITALS: BP 162/81; TEMP 98.4; O2SAT 97
== END 2023-07-26 05:08 | disposition home or self-care (01) ==
LOC: M ED 01:06
DX: S43.122A Dislocation of left acromioclavicular joint, 100%-200% displacement, initial encounter (principal); S42.112A Displaced fracture of body of scapula, left shoulder, initial encounter for closed fracture; W01.0XXA Fall on same level from slipping, tripping and stumbling without subsequent striking against object, initial encounter; I10 Essential (primary) hypertension; E78.5 Hyperlipidemia, unspecified; F10.10 Alcohol abuse, uncomplicated; Z91.041 Radiographic dye allergy status; Z91.048 Other nonmedicinal substance allergy status; Y92.520 Airport as the place of occurrence of the external cause; Y93.89 Activity, other specified; Y99.9 Unspecified external cause status; Z79.82 Long term (current) use of aspirin; Z79.02 Long term (current) use of antithrombotics/antiplatelets; Z79.810 Long term (current) use of selective estrogen receptor modulators (SERMs); Z79.899 Other long term (current) drug therapy

== ENCOUNTER → 2023-08-10 | Outpatient (CLI) | payer BC ==
[~2023-08-10] MED LIST changes: +HYDR-3713 PO
== END ==
LOC: M SOG 07:55
PROVIDERS: ATTEND Orthopaedic Surgery
DX: S42.132A Displaced fracture of coracoid process, left shoulder, initial encounter for closed fracture (principal)

== ENCOUNTER → 2023-09-13 | Outpatient (CLI) | payer BC | LOC: M SOG 07:50 | PROVIDERS: ATTEND Orthopaedic Surgery | DX: S42.132D Displaced fracture of coracoid process, left shoulder, subsequent encounter for fracture with routine healing (principal); W18.30XD Fall on same level, unspecified, subsequent encounter ==

== ENCOUNTER → 2024-11-22 | Outpatient (CLI) | payer BC | LOC: M RAD 15:53 | PROVIDERS: ATTEND Internal Medicine | DX: F17.211 Nicotine dependence, cigarettes, in remission (principal); R91.1 Solitary pulmonary nodule; J94.8 Other specified pleural conditions; I25.10 Atherosclerotic heart disease of native coronary artery without angina pectoris; I25.84 Coronary atherosclerosis due to calcified coronary lesion; K80.20 Calculus of gallbladder without cholecystitis without obstruction ==